=== PATIENT | male | born 1960 | race Caucasian/White ===

== ENCOUNTER 2019-03-18 17:35 | Emergency (ER) | payer BC ==
--- NOTE | 2019-03-18 18:20 | PDOC ---
Rapid Medical Evaluation Time Seen by Provider: 03/18/19 18:17 Medical Evaluation: Allergies Allergy/AdvReac Type Severity Reaction Status Date / Time No Known Allergies Allergy Verified 03/18/19 18:17 03/18/19 18:17 CC: left ankle pain, swelling and redness Pt is a 58 y/o male with left ankle pain, swelling and redness for 1 weeks. No fevers. No drainage. Unknown injury. Brief exam: L lateral malleolus swelling with anterior lateral ankle erythema. No warmth to touch. No fluctuance. Orders: L ankle xray To ED for further evaluation Discharge Disposition - Diagnosis Left ankle pain - Referrals - Patient Instructions - Post Discharge Activity
[2019-03-18 18:28] VITALS: TEMP 98.3; BMI 24.3
--- NOTE | 2019-03-18 20:15 | PDOC ---
History of Present Illness - General Chief Complaint: Edema Stated Complaint: FOOT SWOLLEN Time Seen by Provider: 03/18/19 18:17 History Source: Patient - History of Present Illness Initial Comments: 03/18/19 20:15 Chief complaint: Ankle pain and swelling Patient 58-year-old male with no significant medical history as per patient, does not take medications who last saw his doctor a year and half ago with 1 week of left ankle pain. Patient states that he developed pain and redness to the outside of his ankle is now painful to walk. Patient has not taken any pain medicine. Patient denies any fever or injury. Patient has never had this or gout before. Patient does state he drinks 3 beers a day but has not had them in the last few days. GENERAL/CONSTITUTIONAL: No fever, weakness. dizziness HEAD, EYES, EARS, NOSE AND THROAT: No change in vision. No ear pain or discharge. No sore throat. CARDIOVASCULAR: No chest pain RESPIRATORY: No shortness of breath or cough GASTROINTESTINAL: No pain, nausea, vomiting, diarrhea or constipation GENITOURINARY: No dysuria MUSCULOSKELETAL: No neck or back pain, + left ankle SKIN: No rash NEUROLOGIC: No headache, vertigo, loss of consciousness, or loss of sensation. GENERAL: The patient is awake, alert, and fully oriented, in no acute distress. HEAD: Normal with no signs of trauma. EYES: Pupils equal, round and reactive to light, sclera anicteric, conjunctiva clear. ENT: pharynx: no erythema, no exudate, uvula midline NECK: supple CHEST: clear, nontender, rr ABD: soft, nontender BACK: no tenderness or signs of injury EXTREMITIES: Lateral malleolus with mild redness, and tenderness. No other swelling or redness. Neurovascular intact. No swelling to the foot rest of the ankle or calf. Rest of extremities, normal range of motion, no edema. NEUROLOGICAL: Normal speech, cranial nerves II through XII grossly intact, no gross focal abnormalities SKIN: Warm, Dry Past History - Past Medical History Allergies/Adverse Reactions: Allergies Allergy/AdvReac Type Severity Reaction Status Date / Time No Known Allergies Allergy Verified 03/18/19 18:17 Home Medications: Ambulatory Orders Methylprednisolone [Medrol Dose Ruel] 4 mg PO ASDIR #21 tablet 03/18/19 Naproxen [Naprosyn] 500 mg PO BID #20 tablet 03/18/19 - Psycho Social/Smoking Cessation Hx Smoking History: Never smoked *Physical Exam - Vital Signs Last Vital Signs Temp Pulse Resp BP Pulse Ox 98.3 F 96 H 18 166/102 H 97 03/18/19 18:21 03/18/19 18:21 03/18/19 18:21 03/18/19 18:21 03/18/19 18:21 ED Treatment Course - LABORATORY CBC & Chemistry Diagram: 03/18/19 20:22 03/18/19 20:25 Medical Decision Making - Medical Decision Making 03/18/19 20:17 58-year-old male who has not seen a doctor in a year and a half but denies any medical problems, drinks 3 beers a day with 1 week of left lateral ankle pain and mild redness. Likely gout. Patient has no fever, history or any other complaints. Patient will get baseline labs, x-ray. Repeat blood pressure was greatly improved, 160/83 03/18/19 21:31 Labs are stable, white count is 5.7, creatinine is normal. X-ray shows no acute issue, has swelling to lateral malleolus. Uric acid is normal. Glucose is normal. Clinical scenario is most consistent with gout not cellulitis. Will give prescriptions for Naprosyn and steroids 03/18/19 21:35 Discussed issues, findings, results, applicable medications and treatments and follow-up. All these were understood and all questions were answered Discharge - Discharge Information Problems reviewed: Yes Clinical Impression/Diagnosis: Gout Qualifiers: Gout site: ankle Gout etiology: unspecified cause Chronicity: acute Laterality : left Qualified Code(s): M10.9 - Gout, unspecified Condition: Stable Disposition: HOME - Admission No - Additional Discharge Information Prescriptions: Methylprednisolone [Medrol Dose Ruel] 4 mg PO ASDIR #21 tablet Naproxen [Naprosyn] 500 mg PO BID #20 tablet - Follow up/Referral Referrals: Amy Ware MD [Primary Care Provider] - - Patient Discharge Instructions Patient Printed Discharge Instructions: DI for Gout Additional Instructions: Do not drink alcohol, it may make this problem worse Take the Naprosyn 1 tablet every 12 hours, starting tomorrow take the Medrol Dosepak. It is very important for you to follow-up with your doctor. Return to the ER if fever or getting worse instead of better - Post Discharge Activity
[2019-03-18 20:18] VITALS: BP 160/83; PULSE 86
[2019-03-18 21:06] LABS: BASO % 0.7 % (0-2.0); EOS % 1.4 % (0-4.5); HEMATOCRIT 45.1 % (35.4-49); HEMOGLOBIN 15.5 GM/dL (11.7-16.9); LYMPH % 30.4 % (8-40); MCHC 34.5 g/dl (32.0-35.9); MEAN CELL VOLUME 95.7 fl (80-96); MEAN PLT VOLUME 9.9 fl (7.5-11.1); MONO % 8.8 % (3.8-10.2); NEUT % 58.7 % (42.8-82.8); PLATELET COUNT 192 K/MM3 (134-434); RBC 4.71 M/mm3 (4.00-5.60); WHITE BLOOD COUNT 5.7 K/mm3 (4.0-10.0)
[2019-03-18 21:24] LABS: BLOOD UREA NITROGEN 13.8 mg/dL (7-18); CALCIUM 9.3 mg/dL (8.5-10.1); CREATININE 0.8 mg/dL (0.55-1.3); POTASSIUM 3.9 mmol/L (3.5-5.1); URIC ACID 4.8 mg/dL (2.6-7.2)
[2019-03-18] MEDS ORDERED: NAPROXEN 500 MG TABLET PO ONE (21:34)
[2019-03-18] MEDS ORDERED: predniSONE 20 MG TABLET (UD) PO ONE (21:34)
[2019-03-18] MEDS ORDERED: NAPROXEN 500 MG TABLET ONE (21:42)
[2019-03-18] MEDS ORDERED: predniSONE 20 MG TABLET (UD) ONE (21:42)
== END 2019-03-18 21:48 | disposition home or self-care (01) ==
LOC: JERFT 17:35
DX: M10.9 Gout, unspecified (principal)
CPT/HCPCS: 36415; 73610-TC-LT-FY; 80048; 84550; 85025; 99282-25

== ENCOUNTER 2019-10-18 12:37 | Emergency (ER) | payer BC ==
[2019-10-18 12:52] VITALS: BP 189/94; PULSE 94; TEMP 98.6; BMI 24.5
--- NOTE | 2019-10-18 12:55 | PDOC ---
Rapid Medical Evaluation Chief Complaint: Back Pain Time Seen by Provider: 10/18/19 12:53 Medical Evaluation: Allergies Allergy/AdvReac Type Severity Reaction Status Date / Time No Known Allergies Allergy Verified 10/18/19 12:49 Vital Signs Temp Pulse Resp BP Pulse Ox 98.6 F 94 H 20 189/94 H 100 10/18/19 12:50 10/18/19 12:50 10/18/19 12:50 10/18/19 12:50 10/18/19 12:50 10/18/19 12:54 CC: using jackhammer now with lower back pain On brief exam: FROM noted, tender to lumbar region centrally and paraspinous Pt ordered for: lumbar xray Patient to proceed to the ED Discharge Disposition - Diagnosis Low back pain - Referrals - Patient Instructions - Post Discharge Activity
[2019-10-18] MEDS ORDERED: KETOROLAC TROMETHAMINE 30 MG/1 ML VIAL IM ONE (13:23)
[2019-10-18] MEDS ORDERED: METHOCARBAMOL 500 MG TABLET PO ONE (13:23)
[2019-10-18] MEDS ORDERED: METHOCARBAMOL 500 MG TABLET ONE (13:24)
[2019-10-18] MEDS ORDERED: KETOROLAC TROMETHAMINE 30 MG/1 ML VIAL ONE (13:24)
--- NOTE | 2019-10-18 13:27 | PDOC ---
History of Present Illness - General Chief Complaint: Back Pain Stated Complaint: LWR BACK PAIN Time Seen by Provider: 10/18/19 12:53 History Source: Patient Exam Limitations: Clinical Condition - History of Present Illness Initial Comments: 10/18/19 13:34 Patient with no significant past medical history present with complaint of moderate pain to bilateral lower back which is worse from getting up from laying or sitting position and improved with standing. 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 Denies any trauma or injury to lower back. Patient has not taken anything for symptom. Patient reports symptoms started a week ago has been progressively getting worse. Denies urinary frequency, dysuria, burning with urination, saddle paresthesia, urinary or fecal incontinence. Denies any other symptoms Occurred: reports: other (1 week) Severity: reports: moderate Pain Location: reports: back Method of Injury: Yes: unknown Modifying Factors: improves with: None Loss of Consciousness: no loss of consciousness Associated Symptoms (Fall): muscle spasms (back spasm) Past History - Medical History Allergies/Adverse Reactions: Allergies Allergy/AdvReac Type Severity Reaction Status Date / Time No Known Allergies Allergy Verified 10/18/19 12:49 Home Medications: Ambulatory Orders Naproxen [Naprosyn] 500 mg PO BID #20 tablet 03/18/19 Methocarbamol [Robaxin -] 500 mg PO BID PRN #14 tablet 10/18/19 Methylprednisolone [Medrol Dose Ruel] 4 mg PO ASDIR #21 tablet 10/18/19 COPD: No - Immunization History Immunization Up to Date: No - Psycho-Social/Smoking History Smoking History: Current every day smoker Information on smoking cessation initiated: No - Substance Abuse Hx (Audit-C & DAST Scrn) How often the patient has a drink containing alcohol: Never Score: In Men: 4 or > Positive; In Women: 3 or > Positive: 0 Screen Result (Pos requires Nsg. Audit-10AR): Negative In the last yr the pt used illegal drug/Rx for NonMed reason: No Score: Yes response is considered Positive: 0 Screen Result (Positive result requires Nsg. DAST-10): Negative Review of Systems - Review of Systems Able to Perform ROS?: Yes Is the patient limited Swedish proficient: No Constitutional: No: Chills, Fever, Malaise HEENTM: No: Symptoms Reported, See HPI, Eye Pain, Blurred Vision, Tearing, Recent change in vision, Double Vision, Cataracts, Ear Pain, Ocular Prothesis, Ear Discharge, Nose Pain, Nose Congestion, Tinnitus, Nose Bleeding, Hearing Loss, Throat Pain, Throat Swelling, Mouth Pain, Dental Problems, Difficulty Swallowing, Mouth Swelling, Other Respiratory: No: Symptoms reported, See HPI, Cough, Orthopnea, Shortness of Breath, SOB with Exertion, SOB at Rest, Stridor, Wheezing, Productive cough, Hemoptysis, Other Cardiac (ROS): No: Symptoms Reported, See HPI, Chest Pain, Edema, Irregular Heart Rate, Lightheadedness, Palpitations, Syncope, Chest Tightness, Other ABD/GI: No: Symptoms Reported, Abd. Pain w/ defecation, Nausea, Vomiting Musculoskeletal: Yes: Symptoms Reported, See HPI, Back Pain Integumentary: No: Symptoms Reported Neurological: No: Symptoms reported, Numbness, Paresthesia, Weakness, Dizziness All Other Systems: Reviewed and Negative *Physical Exam - Vital Signs Last Vital Signs Temp Pulse Resp BP Pulse Ox 98.6 F 94 H 20 189/94 H 100 10/18/19 12:50 10/18/19 12:50 10/18/19 12:50 10/18/19 12:50 10/18/19 12:50 - Physical Exam 10/18/19 13:42 GENERAL: Well developed, well nourished. Awake and alert. No acute distress. PULMONARY: No evidence of respiratory distress. MUSCULOSKELETAL : moderate tenderness to bilateral paravertebral muscle of lumbar spine of L2-S1 and lower thoracic spine of T11-T12. No radiculopathy. Negative straight leg raise. No CVA tenderness bilateral. Muscle to par avertebral muscle of lumbosacral spine very tensed EXTREMITIES: No cyanosis. No clubbing. No edema. No calf tenderness. SKIN: Warm and dry. Normal capillary refill. No rashes. No jaundice. NEUROLOGICAL: Alert, awake, appropriate. No motor deficits in the lower extremities. Gait is normal without ataxia. PSYCHIATRIC: Cooperative. Good eye contact. Appropriate mood and affect. General Appearance: Yes: Nourished, Appropriately Dressed. No: Apparent Distress Medical Decision Making - Medical Decision Making 10/18/19 13:38 Patient with no significant past medical history present with complaint of moderate pain to bilateral lower back which is worse from getting up from laying or sitting position and improved with standing. 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 Denies any trauma or injury to lower back. Patient has not taken anything for symptom. Patient r cherie symptoms started a week ago has been progressively getting worse. Denies urinary frequency, dysuria, burning with urination, saddle paresthesia, urinary or fecal incontinence. Denies any other symptoms Exam significant for moderate tenderness to bilateral paravertebral muscle of lumbar spine of L2-S1 and lower thoracic spine of T11-T12. No radiculopathy. Negative straight leg raise. No CVA tenderness bilateral. Muscle to paravertebral muscle of lumbosacral spine very tensed X-ray of lumbosacral spine shows no acute abnormality. Patient symptoms likely muscle spasm. Toradol 30 mg IM ordered for pain and Robaxin added for spasm. Patient stable for discharge on Medrol pack for anti-inflammatory effect and Robaxin for spasm with neurosurgery follow-up Discharge - Discharge Information Problems reviewed: Yes Clinical Impression/Diagnosis: Low back pain Qualifiers: Chronicity: acute Back pain laterality: bilateral Sciatica presence: without sciatica Qualified Code(s): M54.5 - Low back pain Condition: Stable Disposition: HOME - Admission No - Additional Discharge Information Prescriptions: Methylprednisolone [Medrol Dose Ruel] 4 mg PO ASDIR #21 tablet Methocarbamol [Robaxin -] 500 mg PO BID PRN #14 tablet PRN Reason: Back Pain - Follow up/Referral Referrals: Cristobal Maya MD, [facility] [Staff Physician] - - Patient Discharge Instructions Patient Printed Discharge Instructions: DI for Low Back Pain Additional Instructions: Your pain is likely from spasm of the back. Take prescribed medication as prescribed for pain and spasm. Apply heat therapy to lower back as needed for pain. Follow-up referred orthopedic vehicle care specialist for reevaluation and possible MRI if needed - Post Discharge Activity
== END 2019-10-18 13:35 | disposition home or self-care (01) ==
LOC: JERFT 12:37
PROC: 3E0233Z Introduction of Anti-inflammatory into Muscle, Percutaneous Approach (ICD-10-PCS; principal; 2019-10-18)
DX: M54.5 Low back pain (principal)
CPT/HCPCS: 72100-TC-FY; 99284-25